=== PATIENT | female | born 1965 | race African-American/Black ===

== ENCOUNTER 2018-03-14 07:01 | Observation (INO) | payer OTHER ==
[2018-03-14] MEDS ORDERED: ONDANSETRON 4 MG/2 ML VIAL ONE ×2 (07:08→08:36)
[2018-03-14] MEDS ORDERED: MORPHINE 4 MG/ML SYR ONE ×3 (07:20→10:24)
[2018-03-14] MEDS ORDERED: PROMETHAZINE 25 MG/ML VIAL ONE (07:20)
[2018-03-14 07:51] LABS: Absolute Lymphocytes (CBC) 0.7 K/uL (0.7-4.9); Absolute Monocytes 0.7 K/uL (0.1-1.3); Absolute Neutrophil 10.8 K/uL (1.8-8.0); Basophils % 0.1 % (0-1.3); Hematocrit 33.5 % (36.0-45.0); Lymphocytes % 5.9 % (15.3-44.8); MCH 23.9 pg (27.0-35.0); MCV 76.2 fL (80-100); Protime INR 1.01; RBC Red Blood Cell Count 4.39 M/uL (3.86-4.86)
[2018-03-14 07:56] LABS: BUN Blood Urea Nitrogen 14 mg/dL (7-18); Bicarbonate 23 mmol/L (21-32); Glucose Level 111 mg/dL (74-106); Potassium 3.2 mmol/L (3.5-5.1); Sodium Level 137 mmol/L (136-145)
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
[2018-03-14 08:33] LABS: Anisocytosis 1+; Blood Morphology Comment NOTED (NOT SEEN); Ovalocytes 1+; Platelet Estimate ADEQ
[2018-03-14] MEDS ORDERED: DERMABOND SKIN ADHESIVE TOP ONE ×2 (08:51→08:58)
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
[2018-03-14] MEDS ORDERED: TETANUS & DIPHTHERIA TOX,ADULT 0.5 ML VIAL ONE (10:04)
[2018-03-14 10:13] LABS: Urine Blood NEGATIVE (NEG); Urine Glucose NEGATIVE (NEG); Urine Protein NEGATIVE (NEG); Urine pH 5.5 (5.0-7.0)
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
[2018-03-14] MEDS ORDERED: ACETAMINOPHEN 500 MG TAB PO PRN (11:56)
[2018-03-14] MEDS: MORPHINE 4 MG/ML SYR IV PRN ×3 (14:04→22:30)
[2018-03-14] MEDS: ONDANSETRON 4 MG/2 ML VIAL IV PRN ×2 (14:26→22:30)
[2018-03-14 14:35] VITALS: BMI 26.6
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
[2018-03-15 03:44] VITALS: O2SAT 99
[2018-03-15] MEDS: MORPHINE 4 MG/ML SYR IV PRN (04:19)
[2018-03-15] MEDS: ONDANSETRON 4 MG/2 ML VIAL IV PRN (04:20)
[2018-03-15 04:56] LABS: Absolute Lymphocytes (CBC) 0.8 K/uL (0.7-4.9); Absolute Monocytes 0.5 K/uL (0.1-1.3); Absolute Neutrophil 3.2 K/uL (1.8-8.0); Basophils % 0.2 % (0-1.3); Eosinophils % 0.3 % (0-4.4); Hematocrit 28.5 % (36.0-45.0); Lymphocytes % 17.6 % (15.3-44.8); MCH 24.5 pg (27.0-35.0); MCV 76.2 fL (80-100); MPV 8.6 fL (7.6-11.3); Monocytes % 11.1 % (3.3-12.3); RBC Red Blood Cell Count 3.75 M/uL (3.86-4.86)
[2018-03-15 05:20] LABS: BUN Blood Urea Nitrogen 8 mg/dL (7-18); Bicarbonate 26 mmol/L (21-32); Glucose Level 97 mg/dL (74-106); Potassium 3.3 mmol/L (3.5-5.1); Sodium Level 140 mmol/L (136-145)
[2018-03-15 12:15] VITALS: BP 114/73; TEMP 98.9
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
--- NOTE | 2018-03-15 14:10 | P.PN ---
Date of Service: 03/15/18 S: Patient is still sore, can open her eyes and barely see out through the. States she gets limit dizzy when she gets up and tries to walk. No localized pain anywhere just sore all over O: Less swelling to face today. Can open the eyes fractionally. Has some muscle tenderness in the left upper arm but full range of motion. A: Patient is surgically stable for discharge. She was admitted for observation. She is no change in her vital signs, the swelling in her face is a lot less. P: I have gone up to speak to the patient about being discharged. Her family is very upset about her being sent home. I have explained to her that she has no evidence of any neurological deficit, her injuries have been identified at this point. We have arranged for follow-up care regarding her eyes and vision. She is more than welcome to come see me regarding the wounds to her eyes and eyelids if need be. The family is very upset about her going home. They state that could of been missed on the CT scan to the amount of swelling on the patient's face and head. They say that she can't walk, is unsteady on her feet. A repeat head CT scan was ordered. When it comes back she may be discharged.
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
== END 2018-03-15 15:32 | disposition home or self-care (01) ==
LOC: ER 07:01 → ERHOLD 10:19 → EEVIPCON 10:19 → 2ND 12:07
PROVIDERS: ADMIT Surgery; ATTEND Surgery
PROC: 08QRXZZ Repair Left Lower Eyelid, External Approach (ICD-10-PCS; principal; 2018-03-14)
DX: S01.111A Laceration without foreign body of right eyelid and periocular area, initial encounter (principal); S02.2XXA Fracture of nasal bones, initial encounter for closed fracture; S05.12XA Contusion of eyeball and orbital tissues, left eye, initial encounter; S05.11XA Contusion of eyeball and orbital tissues, right eye, initial encounter; Y04.2XXA Assault by strike against or bumped into by another person, initial encounter; Y92.009 Unspecified place in unspecified non-institutional (private) residence as the place of occurrence of the external cause; Z23 Encounter for immunization; I10 Essential (primary) hypertension; Z88.6 Allergy status to analgesic agent
CPT/HCPCS: 36415; 70450; 70486; 71260; 72125; 74177; 76377; 80048; 81003; 81025; 85025; 85610; 86850; 86900; 86901; 90714; 96374; 96375; 97163; 99291; 99292; G0378; J2405; J2550; Q9967

== ENCOUNTER 2019-09-28 17:07 | Emergency (ER) | payer OTHER ==
[2019-09-28] MEDS ORDERED: METOCLOPRAMIDE 10 MG/2mL INJ ONE (18:39)
[2019-09-28] MEDS ORDERED: dexAMETHasone 10 MG/ML VIAL ONE (18:39)
[2019-09-28] MEDS ORDERED: KETOROLAC 30 MG/ML INJ ONE (18:39)
[2019-09-28] MEDS ORDERED: DIPHENHYDRAMINE 50 MG/ML VIAL ONE (18:39)
[2019-09-28] MEDS ORDERED: NA CHLORIDE 0.9% 100 ML IV ONE (18:40)
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
--- NOTE | 2019-09-28 19:32 | ER ---
Nurse's Notes [facility] Name: Vandana Rangel Age: 54 yrs Sex: Female : 1965 Arrival Date: 09/28/2019 Time: 17:09 Bed 13 Private MD: Diagnosis: Headache Presentation: 09/28 17:29 Presenting complaint: Patient states: Headache x 3 days mostly on the R occipital lobe. ca1 Previous history of migraines. Reports dizziness. Denies N/V/F. Transition of care: patient was not received from another setting of care. Onset of symptoms was September 28, 2019. Risk Assessment: Do you want to hurt yourself or someone else? Patient reports no desire to harm self or others. Initial Sepsis Screen: Does the patient meet any 2 criteria? No. Patient's initial sepsis screen is negative. Does the patient have a suspected source of infection? No. Patient's initial sepsis screen is negative. Care prior to arrival: None. 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 - Social history:: Smoking status: Patient/guardian denies using tobacco. - Ebola Screening: : Patient negative for fever greater than or equal to 101.5 degrees Fahrenheit, and additional compatible Ebola Virus Disease symptoms Patient denies exposure to infectious person Patient denies travel to an Ebola-affected area in the 21 days before illness onset No symptoms or risks identified at this time. Screenin:05 Abuse screen: Denies threats or abuse. Denies injuries from another. Nutritional jl7 screening: No deficits noted. Tuberculosis screening: No symptoms or risk factors identified. Fall Risk IV access (20 points). Total Smith Fall Scale indicates No Risk (0-24 pts). Assessment: 19:05 General: Appears in no apparent distress. uncomfortable, Behavior is calm, cooperative, jl7 appropriate for age. Pain: Complains of pain in right occipital area Pain currently is 10 out of 10 on a pain scale. Neuro: Level of Consciousness is awake, alert, obeys commands, Oriented to person, place, time, situation. Cardiovascular: Patient's skin is warm and dry. Respiratory: Airway is patent Respiratory effort is even, unlabored, Respiratory pattern is regular, symmetrical. Derm: Skin is pink, warm \T\ dry. 19:08 Reassessment: Patient appears in no apparent distress at this time. Patient and/or jb4 family updated on plan of care and expected duration. Pain level reassessed. Patient is alert/active/playful, equal unlabored respirations, skin warm/dry/pink. 19:20 Reassessment: Patient appears in no apparent distress at this time. Patient and/or jb4 family updated on plan of care and expected duration. Pain level reassessed. Patient is alert/active/playful, equal unlabored respirations, skin warm/dry/pink. Pt reports pain has decreased to 3/10 Patient states feeling better. Vital Signs: 17:33 BP 131 / 89; Pulse 93; Resp 17 S; Temp 99(O); Pulse Ox 100% on R/A; Weight 79.38 kg ca1 (R); Height 5 ft. 5 in. (165.10 cm) (R); Pain 10/10; 19:15 BP 147 / 91; Pulse 74; Resp 16; Pulse Ox 100% on R/A; jb4 19:45 BP 126 / 97; Pulse 72; Resp 16; Pulse Ox 100% on R/A; jb4 17:33 Body Mass Index 29.12 (79.38 kg, 165.10 cm) ca1 ED Course: 17:09 Patient arrived in ED. mr 17:32 Triage completed. ca1 17:34 Arm band placed on right wrist. ca1 17:37 Rinku Pool NP is PHCP. pm1 17:37 Raghav Loving MD is Attending Physician. pm1 18:30 Paul Sargent, PERLITA is Primary Nurse. jl7 18:37 CT completed. Patient tolerated procedure well. Patient moved back from CT. bq 18:38 CT Head Brain wo Cont In Process Unspecified. EDMS 19:05 Patient has correct armband on for positive identification. Bed in low position. Call jl7 light in reach. Side rails up X 1. Pulse ox on. NIBP on. Warm blanket given. 19:05 Inserted saline lock: 22 gauge in right antecubital area, using aseptic technique. jl7 19:31 Graham Raphael MD is Referral Physician. pm1 19:54 No provider procedures requiring assistance completed. IV discontinued, intact, ca1 bleeding controlled, No redness/swelling at site. Pressure dressing applied. 19:54 No provider procedures requiring assistance completed. IV discontinued, intact, jb4 bleeding controlled, No redness/swelling at site. Pressure dressing applied. Administered Medications: 18:45 Drug: TORadol - Ketorolac 15 mg Route: IVP; Site: right antecubital; jl7 19:50 Follow up: Response: No adverse reaction; Pain is decreased ca1 18:47 Drug: Benadryl 12.5 mg Route: IVP; Site: right antecubital; jl7 19:50 Follow up: Response: No adverse reaction; Pain is decreased ca1 19:55 Follow up: Response: No adverse reaction jb4 18:50 Drug: Reglan 10 mg Route: IVP; Site: right antecubital; jl7 19:50 Follow up: Response: No adverse reaction; Pain is decreased ca1 18:55 Drug: Decadron - Dexamethasone 10 mg Route: IVP; Site: right antecubital; jl7 19:50 Follow up: Response: No adverse reaction; Pain is decreased ca1 19:55 Follow up: Response: No adverse reaction jb4 Outcome: 19:31 Discharge ordered by . pm1 19:54 Discharged to home ambulatory, with family. ca1 19:54 Condition: stable 19:54 Discharge instructions given to patient, Instructed on discharge instructions, follow up and referral plans. no drinking with medication, no driving heavy equipment, medication usage, Demonstrated understanding of instructions, follow-up care, medications, Prescriptions given X 2. 19:55 Patient left the ED. ca1 Signatures: Dispatcher [employer] LEIGH ANNIA JefferyJoan mr Ariella Duarte Patrick, SAJI TRACK SUPERINTENDENT pm1 Vick Guerra, RN RN jb4 Paul Sargent RN RN jl7 Abbi Pratt RN RN ca1
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
[2019-09-28 20:42] VITALS: TEMP 99; O2SAT 100
[2019-09-28 20:45] VITALS: BP 126/97
== END 2019-09-28 19:55 | disposition home or self-care (01) ==
LOC: ER 17:07
DX: R51 Headache (principal); I10 Essential (primary) hypertension; Z88.6 Allergy status to analgesic agent; Z88.8 Allergy status to other drugs, medicaments and biological substances
CPT/HCPCS: 70450; 96375; 96374; 99284; J2765; J1200; J1100

== ENCOUNTER 2020-06-07 06:42 | Emergency (ER) | payer OTHER ==
--- OUTSIDE RECORDS SUMMARY | 2020-06-07 06:44 | XMS REPORT | Summary of Care ---
:1965 Author Organization [facility] Address [address] [place] [id number] Care Team Providers Name Role Phone Pcp, Patient Does Not Have A Primary Care Provider +[id number] Reason for Visit Reason Comments Exposure Encounter Details Date Type Department Care Team Description 04/09/2020 Laboratory Only [facility] Family Elio Zheng FNP [address] [place] [id number] Suspected Covid-19 Medicine - [facility], Ad[facility] Fam Pob I Virus Infection [address] [place] [address] (Primary D x) [place] [address] Allergies Not on Filedocumented as of this encounter (statuses as of 04/09/2020) Medications Not on filedocumented as of this encounter (statuses as of 04/09/2020) Active Problems Not on filedocumented as of this encounter (statuses as of 04/09/2020) Social History Tobacco Use Types Packs/Day Years Used Date Never Assessed Sex Assigned at Date Recorded Not on file Job Start Date Occupation Industry Not on file Not on file Not on file Travel History Travel Start Travel End No recent travel history available. COVID-19 Exposure Response Date Recorded In the last month, have you been in contact with Yes 04/09/2020 7:07 AM CDT someone who was confirmed or suspected to have Coronavirus / COVID-19? documented as of this encounter Last Filed Vital Signs Not on filedocumented in this encounter Plan of Treatment Name Type Priority Associated Diagnoses Order S radhika COVID-19 (PCR MOLECULAR LAB Routine Suspected Covid-1 9 Virus Expected: 04/09/2020, TESTING) Infection Expires: 2020 Health Maintenance Due Date Last Done Comments DTaP,Tdap,and Td Vaccines 1978 (1 - Tdap) Depression Screening 1979 Breast Cancer Screening 2007 (MAMMOGRAM) PAP SMEAR 12/26/2013 12/26/2010, 09/03/2007, 07/13/2006, Additional history exists COLONOSCOPY 2017 Zoster Recombinant Vaccine 2017 (SHINGRIX) (1 of 2) INFLUENZA VACCINE (#1) 2020 PNEUMOCOCCAL 0-64 YEARS Aged Out No longe r eligible COMBINED SERIES based on patient 's age to complete this topic documented as of this encounter Results Not on filedocumented in this encounter Visit Diagnoses Diagnosis Suspected Covid-19 Virus Infection - Fernanda silveira documented in this encounter Additional Health Concerns Infection Onset Date Last Indicated Resolved Time COVID-19 Rule Out 04/09/2020 04/09/2020 documented as of this encounter documented as of this encounter
[2020-06-07] MEDS ORDERED: MORPHINE 4 MG/ML SYR ONE (07:48)
[2020-06-07] MEDS ORDERED: ONDANSETRON 4 MG/2 ML VIAL ONE (07:48)
[2020-06-07] MEDS ORDERED: NA CHLORIDE 0.9% 1,000 ML ONE (07:48)
[2020-06-07 07:50] LABS: Basophils % 0.7 % (0-1.3); Hematocrit 35.7 % (36.0-45.0); Lymphocytes % 23.7 % (15.3-44.8); MPV 8.4 fL (7.6-11.3)
[2020-06-07 08:04] LABS: ALT/SGPT 20 U/L (12-78); AST/SGOT 16 U/L (15-37); Albumin 3.4 g/dL (3.4-5.0); Alkaline Phosphatase 76 U/L (45-117); BUN Blood Urea Nitrogen 11 mg/dL (7-18); Bicarbonate 25 mmol/L (21-32); Bilirubin Direct < 0.1 mg/dL (0-0.2); Bilirubin Total 0.3 mg/dL (0.2-1.0); Glucose Level 91 mg/dL (74-106); Lipase 71 U/L (73-393); Potassium 3.7 mmol/L (3.5-5.1); Protein, Total 8.2 g/dL (6.4-8.2); Sodium Level 140 mmol/L (136-145)
--- NOTE | 2020-06-07 08:18 | RAD REPORT ---
EXAM DESCRIPTION: CT - Abdomen Pelvis W Contrast - 06/07/2020 8:02 am CLINICAL HISTORY: Abdominal pain COMPARISON: none. TECHNIQUE: Computed axial tomography of the abdomen pelvis was obtained. 100 cc Isovue-300 was admin istered intravenously. Oral contrast was not requested which limits evaluation of bowel. All CT scans are performed using dose optimization technique as appropriate and may include automated exposure control or mA/KV adjustment according to patient size. FINDINGS: Small hepatic and splenic cysts Pancreas, adrenal and kidneys appear unremarkable. There is no evidence of diverticulitis. Normal appendix. No adnexal mass. Trace amount of free fluid IMPRESSION: Trace amount of free fluid Small hepatic and splenic cysts
[2020-06-07] MEDS ORDERED: FAMOTIDINE 20 MG/2 ML VIAL IV ONE (09:27)
--- NOTE | 2020-06-07 10:00 | EDPHYS ---
Physician Documentation [facility] Name: Vandana Rangel Age: 55 yrs Sex: Female : 1965 Arrival Date: 06/07/2020 Time: 06:46 Bed 7 Private MD: ED Physician Dimitry Meredith HPI: 06/07 07:36 This 55 yrs old Black Female presents to ER via Ambulatory with complaints of Nausea, pm1 Abdominal Pain. 07:36 The patient presents to the emergency department with nausea, abdominal pain, of the pm1 epigastric area, described as burning. Onset: The symptoms/episode began/occurred 2 week(s) ago. Possible causes: gastritis. The symptoms are aggravated by food , The symptoms are alleviated by nothing. Associated signs and symptoms: Pertinent positives: abdominal pain, Pertinent negatives: diarrhea, fever, vomiting. Severity of symptoms: in the emergency department the symptoms are worse. The patient has experienced similar episodes in the past, multiple times. The patient has not recently seen a physician, has had a EGD about 2-3 years and is due for a repeat with Dr. Schofield. Historical: - Allergies: 07:10 Hydrochlorothiazide; iw 07:10 Biaxin; iw - Home Meds: 07:10 Lisinopril Oral once daily [Active]; pantoprazole 20 mg oral TbEC 1 tab once daily iw [Active]; fluoxetine 20 mg Oral cap 1 cap once daily [Active]; - PMHx: 07:10 GERD; Hypertension; iw - PSHx: 07:10 Tubal ligation; iw - Immunization history:: Adult Immunizations. - Social history:: Smoking status: Patient denies any tobacco usage or history of. ROS: 07:36 Constitutional: Negative for fever, chills, and weight loss, Neck: Negative for injury, pm1 pain, and swelling, Cardiovascular: Negative for chest pain, palpitations, and edema, Respiratory: Negative for shortness of breath, cough, wheezing, and pleuritic chest pain. 07:36 Back: Negative for injury and pain, MS/Extremity: Negative for injury and deformity, Skin: Negative for injury, rash, and discoloration, Neuro: Negative for headache, weakness, numbness, tingling, and seizure. 07:36 Abdomen/GI: Positive for abdominal pain, nausea, Negative for vomiting, diarrhea, constipation. Exam: 07:36 Constitutional: This is a well developed, well nourished patient who is awake, alert, pm1 and in no acute distress. Head/Face: Normocephalic, atraumatic. Cardiovascular: Regular rate and rhythm with a normal S1 and S2. No gallops, murmurs, or rubs. Normal PMI, no JVD. No pulse deficits. Respiratory: Lungs have equal breath sounds bilaterally, clear to auscultation and percussion. No rales, rhonchi or wheezes noted. No increased work of breathing, no retractions or nasal flaring. 07:36 Back: No spinal tenderness. No costovertebral tenderness. Full range of motion. Skin: Warm, dry with normal turgor. Normal color with no rashes, no lesions, and no evidence of cellulitis. MS/ Extremity: Pulses equal, no cyanosis. Neurovascular intact. Full, normal range of motion. 07:36 Abdomen/GI: Exam negative for acute changes, Inspection: abdomen appears normal, Bowel sounds: normal, Palpation: soft, in all quadrants, mild abdominal tenderness, in the epigastric area. 07:36 Neuro: Exam negative for acute changes, Orientation: is normal, Mentation: is normal, Motor: is normal, moves all fours. Vital Signs: 07:05 BP 167 / 98; Pulse 80; Resp 16; Temp 98.1; Pulse Ox 100% on R/A; Weight 83.01 kg; iw Height 5 ft. 5 in. (165.10 cm); 07:44 BP 138 / 91; Pulse 76; Resp 16; Pulse Ox 99% ; bp 09:33 BP 141 / 90; Pulse 69; Resp 16; Pulse Ox 100% ; bp 10:26 BP 134 / 84; Pulse 65; Resp 16; Temp 97; Pulse Ox 100% ; bp 07:05 Body Mass Index 30.45 (83.01 kg, 165.10 cm) iw MDM: 07:11 Patient medically screened. pm1 09:59 Data reviewed: vital signs. Data interpreted: Pulse oximetry: on room air is 100 %. pm1 Interpretation: normal. Counseling: I had a detailed discussion with the patient and/or guardian regarding: the historical points, exam findings, and any diagnostic results supporting the discharge/admit diagnosis, lab results, radiology results, the need for outpatient follow up, to return to the emergency department if symptoms worsen or persist or if there are any questions or concerns that arise at home. 06/07 07:27 Order name: Basic Metabolic Panel; Complete Time: 08:10 pm1 06/07 07:27 Order name: CBC with Diff; Complete Time: 07:51 pm1 06/07 07:27 Order name: Hepatic Function; Complete Time: 08:10 pm1 06/07 07:27 Order name: Lipase; Complete Time: 08:10 pm1 06/07 07:27 Order name: CT Abd/Pelvis - IV Contrast Only; Complete Time: 08:49 pm1 06/07 08:03 Order name: CREATININE WHOLE BLOOD; Complete Time: 08:10 EDMS 06/07 07:27 Order name: IV Saline Lock; Complete Time: 07:43 pm1 06/07 07:27 Order name: Labs collected and sent; Complete Time: 07:43 pm1 Administered Medications: 07:40 Drug: NS 0.9% 1000 ml Route: IV; Rate: 1000 ml; Site: right antecubital; bp 10:26 Follow up: IV Status: Completed infusion; IV Intake: 1000ml bp 07:40 Drug: Zofran (Ondansetron) 4 mg Route: IVP; Site: right antecubital; bp 09:08 Follow up: Response: No adverse reaction bp 07:40 Drug: morphine 4 mg Route: IVP; Site: right antecubital; bp 09:08 Follow up: Response: No adverse reaction bp 09:10 Drug: Pepcid 20 mg Route: IVP; Site: right antecubital; bp 10:26 Follow up: Response: Marked relief of symptoms bp Disposition: 06/07/20 09:59 Discharged to Home. Impression: Unspecified abdominal pain, Nausea. - Condition is Stable. - Discharge Instructions: Abdominal Pain, Adult, Nausea, Adult. - Prescriptions for Zofran ODT 4 mg Oral tablet,disintegrating - place 1 tablet by TRANSLINGUAL route every 8 hours As needed; 12 tablet. Bentyl 20 mg Oral Tablet - take 1 tablet by ORAL route every 6 hours As needed; 20 tablet. - Work release form, Medication Reconciliation Form, Thank You Letter, Antibiotic Education, Prescription Opioid Use form. - Follow up: Emergency Department; When: As needed; Reason: Worsening of condition. Follow up: Private Physician; When: 2 - 3 days; Reason: Recheck today's complaints, Continuance of care, Re-evaluation by your physician. Follow up: Saleem Schofield MD; When: 2 - 3 days; Reason: Recheck today's complaints, Continuance of care, Re-evaluation by your physician. - Problem is new. - Symptoms have improved. Addendum: 06/09/2020 07:09 Co-signature as Attending Physician, Dimitry Meredith MD. r n Signatures: Dispatcher [employer] [facility] Senia Lua RN RN iw Nieto, Roman, MD MD rn Rinku Pool, KITCHEN HELPER KITCHEN HELPER pm1 Paul Sargent RN RN jl7 Thanh Workman RN RN bp Corrections: (The following items were deleted from the chart) 06/07 08:03 08:02 Chest Pa And Lat (2 Views) ordered. [facility] 10:01 09:59 06/07/2020 09:59 Discharged to Home. Impression: Unspecified abdominal pain; pm1 Nausea. Condition is Stable. Forms are Medication Reconciliation Form, Thank You Letter, Antibiotic Education, Prescription Opioid Use. Follow up: Emergency Department; When: As needed; Reason: Worsening of condition. Follow up: Private Physician; When: 2 - 3 days; Reason: Recheck today's complaints, Continuance of care, Re-evaluation by your physician. Problem is new. Symptoms have improved. pm1 10:34 10:01 06/07/2020 09:59 Discharged to Home. Impression: Unspecified abdominal pain; jl7 Nausea. Condition is Stable. Discharge Instructions: Abdominal Pain, Adult, Nausea, Adult. Prescriptions for Zofran ODT 4 mg Oral tablet,disintegrating - place 1 tablet by TRANSLINGUAL route every 8 hours As needed; 12 tablet, Bentyl 20 mg Oral Tablet - take 1 tablet by ORAL route every 6 hours As needed; 20 tablet. and Forms are Medication Reconciliation Form, Thank You Letter, Antibiotic Education, Prescription Opioid Use. Follow up: Emergency Department; When: As needed; Reason: Worsening of condition. Follow up: Private Physician; When: 2 - 3 days; Reason: Recheck today's complaints, Continuance of care, Re-evaluation by your physician. Follow up: Saleem Schofield; When: 2 - 3 days; Reason: Recheck today's complaints, Continuance of care, Re-evaluation by your physician. Problem is new. Symptoms have improved. pm1
--- NOTE | 2020-06-07 10:00 | ER ---
Nurse's Notes [facility] Name: Vandana Rangel Age: 55 yrs Sex: Female : 1965 Arrival Date: 06/07/2020 Time: 06:46 Bed 7 Private MD: Diagnosis: Unspecified abdominal pain;Nausea Presentation: 06/07 07:05 Chief complaint: Patient states: has been more nauseated and has an increase in the iw urge to have a BM and feels full , eats one time a day and feels full, normal BM this morning, thought it was due to a change in her anxiety meds but he r doctor said it wasn't , symptoms started 2 weeks ago. Coronavirus screen: At this time, the client does not indicate any symptoms associated with coronavirus-19. Ebola Screen: Patient negative for fever greater than or equal to 101.5 degrees Fahrenheit, and additional compatible Ebola Virus Disease symptoms Patient denies exposure to infectious person. Patient denies travel to an Ebola-affected area in the 21 days before illness onset. No symptoms or risks identified at this time. Initial Sepsis Screen: Does the patient meet any 2 criteria? No. Patient's initial sepsis screen is negative. Does the patient have a suspected source of infection? No. Patient's initial sepsis screen is negative. Risk Assessment: Do you want to hurt yourself or someone else? Patient reports no desire to harm self or others. Onset of symptoms was May 25, 2020. 07:05 Method Of Arrival: Ambulatory iw 07:05 Acuity: BETRA 3 iw Triage Assessment: 07:10 General: Appears in no apparent distress. uncomfortable, obese, Behavior is bp cooperative, appropriate for age, anxious. Pain: Complains of pain in abdomen. EENT: No deficits noted. Neuro: No deficits noted. Cardiovascular: No deficits noted. Respiratory: No deficits noted. GI: Reports lower abdominal pain, upper abdominal pain, constipation, nausea. : No signs and/or symptoms were reported regarding the genitourinary system. Derm: No deficits noted. Musculoskeletal: No deficits noted. Historical: - Allergies: 07:10 Hydrochlorothiazide; iw 07:10 Biaxin; iw - Home Meds: 07:10 Lisinopril Oral once daily [Active]; pantoprazole 20 mg oral TbEC 1 tab once daily iw [Active]; fluoxetine 20 mg Oral cap 1 cap once daily [Active]; - PMHx: 07:10 GERD; Hypertension; iw - PSHx: 07:10 Tubal ligation; iw - Immunization history:: Adult Immunizations. - Social history:: Smoking status: Patient denies any tobacco usage or history of. Screenin:10 Abuse screen: Denies threats or abuse. Denies injuries from another. Nutritional bp screening: No deficits noted. Tuberculosis screening: No symptoms or risk factors identified. Fall Risk None identified. Assessment: 07:10 General: SEE TRIAGE NOTE. GI: Abdomen is non-distended, obese. 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 bp 09:34 Reassessment: UOP PENDING, PT STATES NO RELIEF S/S. bp 10:26 Reassessment: PT D/C HOME AMBULATORY, DX WITH NONSPECIFIC ABDOMINAL PAIN. bp Vital Signs: 07:05 BP 167 / 98; Pulse 80; Resp 16; Temp 98.1; Pulse Ox 100% on R/A; Weight 83.01 kg; iw Height 5 ft. 5 in. (165.10 cm); 07:44 BP 138 / 91; Pulse 76; Resp 16; Pulse Ox 99% ; bp 09:33 BP 141 / 90; Pulse 69; Resp 16; Pulse Ox 100% ; bp 10:26 BP 134 / 84; Pulse 65; Resp 16; Temp 97; Pulse Ox 100% ; bp 07:05 Body Mass Index 30.45 (83.01 kg, 165.10 cm) iw ED Course: 06:46 Patient arrived in ED. ag3 07:08 Triage completed. iw 07:10 Arm band placed on. iw 07:10 Patient has correct armband on for positive identification. Bed in low position. Call bp light in reach. Side rails up X2. 07:11 Rinku Pool NP is PHCP. pm1 07:11 Dimitry Meredith MD is Attending Physician. pm1 07:11 Thanh Workman, PERLITA is Primary Nurse. bp 07:40 Inserted saline lock: 22 gauge in right antecubital area, using aseptic technique. bp 07:45 Warm blanket given. Pulse ox on. NIBP on. mh5 07:45 Initial lab(s) drawn, by pa, sent to lab. Inserted saline lock: 22 gauge antecubital mh5 area, using aseptic technique. Blood collected. 07:46 Basic Metabolic Panel Sent. 5 07:46 CBC with Diff Sent. [facility] 07:46 Hepatic Function Sent. [facility] 07:46 Lipase Sent. [facility] 08:02 CT Abd/Pelvis - IV Contrast Only In Process Unspecified. EDMS 10:01 Saleem Schofield MD is Referral Physician. pm1 10:27 No provider procedures requiring assistance completed. IV discontinued, intact, bp bleeding controlled, No redness/swelling at site. Pressure dressing applied. Administered Medications: 07:40 Drug: NS 0.9% 1000 ml Route: IV; Rate: 1000 ml; Site: right antecubital; bp 10:26 Follow up: IV Status: Completed infusion; IV Intake: 1000ml bp 07:40 Drug: Zofran (Ondansetron) 4 mg Route: IVP; Site: right antecubital; bp 09:08 Follow up: Response: No adverse reaction bp 07:40 Drug: morphine 4 mg Route: IVP; Site: right antecubital; bp 09:08 Follow up: Response: No adverse reaction bp 09:10 Drug: Pepcid 20 mg Route: IVP; Site: right antecubital; bp 10:26 Follow up: Response: Marked relief of symptoms bp Intake: 10:26 IV: 1000ml; Total: 1000ml. bp Outcome: 09:59 Discharge ordered by . pm1 10:27 Discharged to home ambulatory. bp 10:27 Condition: stable 10:27 Discharge instructions given to patient, Instructed on discharge instructions, follow up and referral plans. medication usage, Demonstrated understanding of instructions, follow-up care, medications, Prescriptions given X 2. 10:34 Patient left the ED. jl7 Signatures: Dispatcher [employer] EDMO Senia Lua RN RN iw Rinku Pool NP BALLET DANCER pm1 Laura Aguilar [facility] Paul Sargent RN RN jl7 Thanh Workman RN RN bp Robyn Guerrero3
[2020-06-07 10:48] VITALS: O2SAT 100
[2020-06-07 10:50] VITALS: BP 134/84; TEMP 97
== END 2020-06-07 10:34 | disposition home or self-care (01) ==
LOC: ER 06:42
DX: R10.9 Unspecified abdominal pain (principal); I10 Essential (primary) hypertension; K21.9 Gastro-esophageal reflux disease without esophagitis; Z88.6 Allergy status to analgesic agent; Z88.8 Allergy status to other drugs, medicaments and biological substances
CPT/HCPCS: 96361; 85025; 80048; 36415; 82565; 80076; 83690; 74177; 96375; 96374; 99284; Q9967; J7030; J2405

== ENCOUNTER 2020-09-26 16:57 | Emergency (ER) | payer OTHER, SELFPAY ==
[2020-09-26 21:45] LABS: SARS-COV-2 RT PCR POSITIVE (NEGATIVE)
--- NOTE | 2020-09-26 21:48 | EDPHYS ---
Physician Documentation [facility] Name: Vandana Rangel Age: 55 yrs Sex: Female : 1965 Arrival Date: 09/26/2020 Time: 16:58 Bed 19 Private MD: ED Physician Kris Tong HPI: 09/26 21:48 This 55 yrs old Black Female presents to ER via Ambulatory with complaints of Body tw4 Aches. 21:48 Onset: The symptoms/episode began/occurred yesterday. tw4 21:48 The patient or guardian reports cough. Severity of symptoms: At their worst the tw4 symptoms were mild, in the emergency department the symptoms are unchanged. Modifying factors: The symptoms are alleviated by nothing, the symptoms are aggravated by nothing. The patient has not experienced similar symptoms in the past. 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 - Social history:: Smoking status: Patient denies any tobacco usage or history of. ROS: 21:48 Eyes: Negative for injury, pain, redness, and discharge, Cardiovascular: Negative for tw4 chest pain, palpitations, and edema, Respiratory: Negative for shortness of breath, cough, wheezing, and pleuritic chest pain. 21:48 Constitutional: Positive for body aches, chills, fatigue, Negative for fever, malaise, poor PO intake. Exam: 21:48 Constitutional: This is a well developed, well nourished patient who is awake, alert, tw4 and in no acute distress. Head/Face: Normocephalic, atraumatic. Chest/axilla: Normal chest wall appearance and motion. Nontender with no deformity. No lesions are appreciated. Cardiovascular: Regular rate and rhythm with a normal S1 and S2. No gallops, murmurs, or rubs. Normal PMI, no JVD. No pulse deficits. Respiratory: Lungs have equal breath sounds bilaterally, clear to auscultation and percussion. No rales, rhonchi or wheezes noted. No increased work of breathing, no retractions or nasal flaring. Abdomen/GI: Soft, non-tender, with normal bowel sounds. No distension or tympany. No guarding or rebound. No evidence of tenderness throughout. Back: No spinal tenderness. No costovertebral tenderness. Full range of motion. Skin: Warm, dry with normal turgor. Normal color with no rashes, no lesions, and no evidence of cellulitis. MS/ Extremity: Pulses equal, no cyanosis. Neurovascular intact. Full, normal range of motion. Neuro: Awake and alert, GCS 15, oriented to person, place, time, and situation. Cranial nerves II-XII grossly intact. Motor strength 5/5 in all extremities. Sensory grossly intact. Cerebellar exam normal. Normal gait. Vital Signs: 17:41 BP 106 / 83; Pulse 110; Resp 16; Temp 98.0(TE); Pulse Ox 99% on R/A; Weight 81.65 kg; ss Height 5 ft. 4 in. (162.56 cm); Pain 9/10; 20:00 BP 129 / 99; Pulse 88; Resp 18; Pulse Ox 100% on R/A; vg1 21:00 BP 126 / 93; Pulse 81; Resp 16; Pulse Ox 99% on R/A; vg1 17:41 Body Mass Index 30.90 (81.65 kg, 162.56 cm) ss MDM: 19:21 Patient medically screened. tw4 21:48 Differential Diagnosis: Obstructed Airway Bronchitis Influenza Upper Respiratory tw4 Infection. Data reviewed: vital signs, nurses notes. Data reviewed: lab test result(s), Flu: negative. Data interpreted: Pulse oximetry: Interpretation: normal. Counseling: I had a detailed discussion with the patient and/or guardian regarding: the historical points, exam findings, and any diagnostic results supporting the discharge/admit diagnosis. Special discussion: I discussed with the patient/guardian in detail that at this point there is no indication for admission to the hospital. It is understood, however, that if the symptoms persist or worsen the patient needs to return immediately for re-evaluation. 09/26 19:44 Order name: Strep; Complete Time: 21:43 tw4 09/26 21:43 Interpretation: Within normal limits. tw4 09/26 19:44 Order name: Document PUI#; Complete Time: 19:53 tw4 09/26 20:43 Order name: Throat Culture EDMS 09/26 21:45 Order name: COVID-19/FLU A+B EDMS 09/26 19:44 Order name: Droplet/Contact Precautions; Complete Time: 19:53 tw4 09/26 19:44 Order name: Labs collected and sent; Complete Time: 20:09 tw4 09/26 19:44 [phone] ; Complete Time: 19:53 tw4 09/26 19:44 Order name: O2 Per Protocol; Complete Time: 19:53 tw4 Administered Medications: No medications were administered Disposition: 09/26/20 21:47 Discharged to Home. Impression: Coronavirus infection, unspecified. - Condition is Stable. - Discharge Instructions: Upper Respiratory Infection, Adult, COVID-19. - Prescriptions for Tessalon Perles 100 mg Oral Capsule - take 1 capsule by ORAL route every 8 hours As needed; 15 capsule. Albuterol Sulfate 90 mcg/actuation - inhale 1-2 puff by INHALATION route every 4-6 hours; 1 Inhaler. - Medication Reconciliation Form, Thank You Letter, Antibiotic Education, Prescription Opioid Use form. - Follow up: Private Physician; When: Upon discharge from the Emergency Department; Reason: Recheck today's complaints, Continuance of care, Re-evaluation by your physician. - Problem is new. - Symptoms are unchanged. Signatures: Dispatcher [employer] EDMS Catherine Johnson RN RN ss Wadley, Terrence, MD MD tw4 Stacia Hoff RN RN vg1 Corrections: (The following items were deleted from the chart) 20:30 19:45 Influenza Screen (A \T\ B)+BA.LAB.BRZ ordered. EDGA EDMS 20:31 19:45 CORONAVIRUS+MR.LAB.BRZ ordered. EDGA EDMS 22:11 21:47 09/26/2020 21:47 Discharged to Home. Impression: Coronavirus infection, vg1 unspecified. Condition is Stable. Forms are Medication Reconciliation Form, Thank You Letter, Antibiotic Education, Prescription Opioid Use. Follow up: Private Physician; When: Upon discharge from the Emergency Department; Reason: Recheck today's complaints, Continuance of care, Re-evaluation by your physician. Problem is new. Symptoms are unchanged. tw4
--- NOTE | 2020-09-26 21:48 | ER ---
Nurse's Notes [facility] Name: Vandana Rangel Age: 55 yrs Sex: Female : 1965 Arrival Date: 09/26/2020 Time: 16:58 Bed 19 Private MD: Diagnosis: Coronavirus infection, unspecified Presentation: 09/26 17:39 Chief complaint: Patient states: Body aches, runny nose, cough and chills that started ss yesterday. Coronavirus screen: Client denies travel out of the [place] in the last 14 days. chills, cough unrelated to allergies, runny nose, sore throat. Ebola Screen: Patient denies exposure to infectious person. Patient denies travel to an Ebola-affected area in the 21 days before illness onset. Initial Sepsis Screen: Does the patient meet any 2 criteria? HR > 90 bpm. No. Patient's initial sepsis screen is negative. Does the patient have a suspected source of infection? No. Patient's initial sepsis screen is negative. Risk Assessment: Do you want to hurt yourself or someone else? Patient reports no desire to harm self or others. Onset of symptoms was September 25, 2019. 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 - Social history:: Smoking status: Patient denies any tobacco usage or history of. Screenin:55 Abuse screen: Denies threats or abuse. Nutritional screening: No deficits noted. vg1 Tuberculosis screening: No symptoms or risk factors identified. Fall Risk None identified. Assessment: 19:55 General: Appears in no apparent distress. comfortable, Behavior is calm, cooperative. vg1 19:55 Pain: Complains of pain in [place] mid back Pain currently is 6 out of 10 on a pain scale. vg1 Neuro: Level of Consciousness is awake, alert, obeys commands, Oriented to person, place, time, situation. Cardiovascular: Capillary refill < 3 seconds in bilateral fingers. Respiratory: Airway is patent Respiratory effort is even, unlabored, Respiratory pattern is regular, symmetrical, Breath sounds are clear bilaterally. Respiratory: Reports cough that is non-productive. GI: No signs and/or symptoms were reported involving the gastrointestinal system. : No signs and/or symptoms were reported regarding the genitourinary system. EENT: Throat is pink Reports nasal congestion since Sunday08/24/20 nasal discharge clear, since Sunday08/24/20 slight sore throat.. Derm: Skin is intact, is healthy with good turgor. Musculoskeletal: Circulation, motion, and sensation intact. 21:00 Reassessment: Patient appears in no apparent distress at this time. No changes from vg1 previously documented assessment. Patient is alert, oriented x 3, equal unlabored respirations, skin warm/dry/pink. Vital Signs: 17:41 BP 106 / 83; Pulse 110; Resp 16; Temp 98.0(TE); Pulse Ox 99% on R/A; Weight 81.65 kg; ss Height 5 ft. 4 in. (162.56 cm); Pain 9/10; 20:00 BP 129 / 99; Pulse 88; Resp 18; Pulse Ox 100% on R/A; vg1 21:00 BP 126 / 93; Pulse 81; Resp 16; Pulse Ox 99% on R/A; vg1 17:41 Body Mass Index 30.90 (81.65 kg, 162.56 cm) ED Course: 16:58 Patient arrived in ED. rg4 17:40 Triage completed. ss 17:41 Arm band placed on right wrist. ss 17:43 Raghav Morris PA is [facility]. cp 17:43 Raghav Loving MD is Attending Physician. cp 19:21 Kris Tong MD is Attending Physician. tw4 19:52 Stacia Hoff, RN is Primary Nurse. vg1 19:55 Patient has correct armband on for positive identification. Bed in low position. Call vg1 light in reach. 22:10 No provider procedures requiring assistance completed. Patient did not have IV access vg1 during this emergency room visit. Administered Medications: No medications were administered Outcome: 21:47 Discharge ordered by . tw4 22:11 Discharged to home ambulatory. vg1 22:11 Condition: stable 22:11 Discharge instructions given to patient, Instructed on discharge instructions, follow up and referral plans. medication usage, Demonstrated understanding of instructions, follow-up care, medications, Prescriptions given X 2. 22:11 Patient left the ED. vg1 Signatures: Catherine Johnson RN RN Raghav Morris PA PA cp Garcia, Rubi rg4 Kris Tong MD MD tw4 Stacia Hoff RN RN vg1 Corrections: (The following items were deleted from the chart) 17:42 17:41 LMP N/A - Post-menopause [facility] 20:19 19:55 EENT: Reports nasal congestion since Sunday08/24/20 nasal discharge clear, since vg1 Sunday08/24/20 vg1 20:48 19:15 Inserted saline lock: 20 gauge in right antecubital area, using aseptic vg1 technique. Blood collected. vg1 20:48 19:15 Initial lab(s) drawn, by me, sent to lab. vg1 vg1
[2020-09-26 22:26] VITALS: TEMP 98
[2020-09-26 22:29] VITALS: BP 126/93; O2SAT 99
== END 2020-09-26 22:11 | disposition home or self-care (01) ==
LOC: ER 16:57
DX: U07.1 COVID-19 (principal); I10 Essential (primary) hypertension; Z88.8 Allergy status to other drugs, medicaments and biological substances
CPT/HCPCS: 87070; 87081; 0240U; 99282

== ENCOUNTER 2021-05-07 04:59 | Emergency (ER) | payer OTHER ==
--- NOTE | 2021-05-07 06:01 | ER ---
Nurse's Notes [facility] Name: Vandana Rangel Age: 56 yrs Sex: Female : 1965 Arrival Date: 05/07/2021 Time: 05:03 Bed Waiting Private MD: Diagnosis: Presentation: 05/07 05:42 Chief complaint: Patient states: headache since end of February, has been evaluated from em PCP and ER, was told to follow up with a specialist, also reports nausea, reports left sided headache. Coronavirus screen: Client denies travel out of the [place] in the last 14 days. Ebola Screen: Patient negative for fever greater than or equal to 101.5 degrees Fahrenheit, and additional compatible Ebola Virus Disease symptoms Patient denies exposure to infectious person. Patient denies travel to an Ebola-affected area in the 21 days before illness onset. No symptoms or risks identified at this time. Initial Sepsis Screen: Does the patient meet any 2 criteria? HR > 90 bpm. No. Patient's initial sepsis screen is negative. Does the patient have a suspected source of infection? No. Patient's initial sepsis screen is negative. Risk Assessment: Do you want to hurt yourself or someone else? Patient reports no desire to harm self or others. Onset of symptoms was May 07, 2021. 05:42 Method Of Arrival: Ambulatory em 05:42 Acuity: BERTA 3 em Triage Assessment: 05:45 Headache History: The patient has had previous headaches and this one is more severe em than previous episodes. General: Appears in no apparent distress. comfortable, Behavior is calm, cooperative, appropriate for age. Pain: Complains of pain in left temporal area Pain currently is 9 out of 10 on a pain scale. Pain began february Also complains of nausea. Neuro: Level of Consciousness is awake, alert, obeys commands, Oriented to person, place, time, situation. Cardiovascular: Capillary refill < 3 seconds Patient's skin is warm and dry. Respiratory: Airway is patent Respiratory effort is even, unlabored, Respiratory pattern is regular, symmetrical. Derm: Skin is intact, is healthy with good turgor, Skin is pink, warm \T\ dry. Musculoskeletal: Range of motion: intact in all extremities. Historical: - Allergies: 05:45 Biaxin; em 05:45 hydrochlorothiazide; em - PMHx: 05:45 GERD; Hypertension; em - PSHx: 05:45 tubal; em - Immunization history:: Client reports receiving the 2nd dose of the Covid vaccine. - Social history:: Smoking status: Patient denies any tobacco usage or history of. Screenin:57 Abuse screen: Denies threats or abuse. Nutritional screening: No deficits noted. em Tuberculosis screening: No symptoms or risk factors identified. Fall Risk None identified. Assessment: 05:58 Reassessment: pt request if MRI is available today due to headache, instructed pt that em they are usually not here on the weekends, informed pt that we could try to give medication to improve headache symptoms, pt request to go home and try some over the counter medication since MRI is not available, pt also reports she has prescription migraine medications and will try to get some rest today, pt eloped from triage. Vital Signs: 05:42 BP 143 / 94; Pulse 97; Resp 16; Temp 98.1; Pulse Ox 99% on R/A; Weight 84.37 kg; Height em 5 ft. 5 in. (165.10 cm); Pain 9/10; 05:42 Body Mass Index 30.95 (84.37 kg, 165.10 cm) em ED Course: 05:03 Patient arrived in ED. bp1 05:45 Triage completed. em 05:45 Arm band placed on. em 05:57 Patient has correct armband on for positive identification. em 05:57 No provider procedures requiring assistance completed. Patient did not have IV access em during this emergency room visit. Administered Medications: No medications were administered Outcome: 06:00 Eloped from waiting room, before seeing physician em 06:00 Condition: stable 06:00 Patient left the ED. em Signatures: Tan Bolaños, RN RN em Eliana Leavitt bp1
[2021-05-07 06:15] VITALS: BP 143/94; TEMP 98.1; O2SAT 99
== END 2021-05-07 06:00 | disposition left against medical advice (07) ==
LOC: ER 04:59
DX: Z53.21 Procedure and treatment not carried out due to patient leaving prior to being seen by health care provider (principal)
CPT/HCPCS: 99281